=== PATIENT | female | born 1960 | race Caucasian/White ===

== ENCOUNTER 2016-11-21 20:55 | Emergency (ER) | payer OTHER, MEDICARE ==
--- NOTE | 2016-11-21 22:56 | ED ---
Upper Extremity Pain - HPI Summary HPI Summary: 56F presents with right forearm pain s/o falling today. She tripped over a box fan and cut herself by striking her forearm. She has history of fibromyalgia and takes pain medication for that. She denies any numbness or tingling. She is right handed. She previously broke the left arm. - History of Current Complaint Chief Complaint: EDExtremityUpper Stated Complaint: RIGHT WRIST PAIN Time Seen by Provider: 11/21/16 22:26 - Allergies/Home Medications Allergies/Adverse Reactions: Allergies Allergy/AdvReac Type Severity Reaction Status Date / Time Flu Virus Vaccine Allergy Severe Hives Verified 10/05/15 22:22 Sulfa Antibiotics Allergy Severe Airway Verified 10/05/15 22:22 Obstruction Carbamazepine [From Tegretol] Allergy Mild Rash Verified 10/05/15 22:22 Cephalexin [From Keflex] Allergy Mild Rash Verified 10/05/15 22:22 Chicken Protein Allergy Mild Itching Verified 10/05/15 22:22 Ciprofloxacin [From Cipro] Allergy Mild Rash Verified 10/05/15 22:22 Doxycycline Allergy Mild Rash Verified 10/05/15 22:22 Soy Allergy Allergy Mild Itching Verified 10/05/15 22:22 Diazepam [From Valium] Allergy Unknown See Comment Verified 10/05/15 22:22 Meperidine [From Demerol HCl] Allergy Unknown See Comment Verified 10/05/15 22: 22 Eggs or Egg-derived Products Allergy Hives Verified 10/05/15 22:22 Amoxicillin [From Augmentin] AdvReac Severe Numbness Verified 10/05/15 22:22 Clarithromycin [From Biaxin] AdvReac Severe Nausea And Verified 10/05/15 22:22 Vomiting Clavulanic Acid AdvReac Severe Numbness Verified 10/05/15 22:22 [From Augmentin] Iodinated Contrast Media AdvReac Severe See Comment Verified 10/05/15 22:22 [CONTRAST DYE] Shellfish Allergy AdvReac Severe See Comment Verified 10/05/15 22:22 PMH/Surg Hx/FS Hx/Imm Hx Endocrine/Hematology History: Reports: Hx Diabetes - DM 2, Hx Thyroid Disease - hashimotos, Hx Unexplained Bleeding - following hyterectomy Cardiovascular History: Reports: Hx Aneurysm - brain, Hx Hypertension - denies, Hx Syncope, Other Cardiovascular Problems/Disorders - HOSHIMOTOS, PIGETS DISEASE Respiratory History: Reports: Hx Asthma, Hx Chronic Obstructive Pulmonary Disease (COPD) - HOME O2 @ 2L [place] PRN GI History: Reports: Other GI Disorders - MULTIPLE ABD SURGERIES, IBS, pain, Musculoskeletal History: Reports: Hx Fibromyalgia, Other Musculoskeletal History - PAGETs Sensory History: Reports: Hx Contacts or Glasses Opthamlomology History: Reports: Hx Contacts or Glasses Neurological History: Reports: Hx Seizures, Other Neuro Impairments/Disorders - FIBROMYALIGA, VERTIGO/SYNCOPE, "brain lesions with aneurism" Psychiatric History: Reports: Hx Anxiety, Hx Depression - Surgical History Surgery Procedure, Year, and Place: cholecystectomy, appendectomy, laproscopies , hysterectomy, tonsillectomy, carpal tunnel surgery, benign breast cyst removed. Hx Anesthesia Reactions: No - Immunization History Date of Tetanus Vaccine: Unk Date of Influenza Vaccine: Allergic Infectious Disease History: Denies: Traveled Outside the [place] in Last 30 Days - Family History Known Family History: Positive: None Negative: Cardiac Disease - Social History Alcohol Use: Occasionally Hx Substance Use: No Substance Use Type: Reports: None Hx Tobacco Use: Yes Smoking Status (MU): Former Smoker Review of Systems Negative: Fever Negative: Chest Pain Negative: Shortness Of Breath Positive: Myalgia - right forearm pain All Other Systems Reviewed And Are Negative: Yes Physical Exam Triage Information Reviewed: Yes Vital Signs On Initial Exam: Initial Vitals Temp Pulse Resp BP Pulse Ox 97.8 F 101 18 118/68 99 11/21/16 21:03 11/21/16 21:03 11/21/16 21:03 11/21/16 21:03 11/21/16 21:03 Vital Signs Reviewed: Yes Appearance: Positive: Well-Appearing Skin: Positive: Warm, Dry, Other - tenderness midforearm right hand Head/Face: Positive: Normal Head/Face Inspection Eyes: Positive: Normal, EOMI, [place], Conjunctiva Clear ENT: Positive: Normal ENT inspection, Pharynx normal, TMs normal Respiratory/Lung Sounds: Positive: Clear to Auscultation, Breath Sounds Present Cardiovascular: Positive: Normal, RRR Musculoskeletal: Positive: Limited @ - right wrist, Other - tender midforearm, good pulses, capillary refill<2 secs Diagnostics - Vital Signs Vital Signs Temp Pulse Resp BP Pulse Ox 11/21/16 21:03 97.8 F 101 18 118/68 99 - Laboratory Lab Statement: Any lab studies that have been ordered have been reviewed, and results considered in the medical decision making process. - Radiology wrist, forearm Xray Interpretation: No Acute Changes Radiology Interpretation Completed By: ED Physician Course/Dx - Course Course Of Treatment: 56F presents with right forearm pain s/o falling today. She tripped over a box fan and cut herself by striking her forearm. She has history of fibromyalgia and takes pain medication for that. She denies any numbness or tingling. She is right handed. She previously broke the left arm. on exam tenderness midforearm. xray normal. will treat with RICE. patient understands and agrees with plan. - Diagnoses Differential Diagnosis/HQI/PQRI: Positive: Contusion, Fracture (Closed), Sprain Provider Diagnoses: Right forearm injury Discharge - Discharge Plan Condition: Good Disposition: HOME Patient Education Materials: Contusion in Adults (ED) Referrals: Baudilio Butler DO [Primary Care Provider] - Additional Instructions: Take Tylenol or ibuprofen every 6 hours as needed for pain Apply ice, rest, elevate Follow up with primary care physician within 5 days Return to ED if develop any new or worsening symptoms
[2016-11-21 23:08] VITALS: BP 108/63
--- NOTE | 2016-11-22 07:39 | RAD ---
HISTORY: Right forearm injury, right wrist injury COMPARISONS: None VIEWS: 6, Frontal, lateral, and oblique views of the right wrist with frontal and lateral views of the right forearm FINDINGS: BONE DENSITY: Normal. BONES: There is remote posttraumatic deformity to the proximal phalanx of the fifth digit. There is no acute displaced fracture. 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 There is osteoarthritis of the first CMC joint. ALIGNMENT: There is no dislocation. SOFT TISSUES: Unremarkable. OTHER FINDINGS: None. IMPRESSION: NO ACUTE OSSEOUS INJURY OF THE RIGHT WRIST AND FOREARM. IF SYMPTOMS PERSIST, RECOMMEND REPEAT IMAGING.
== END 2016-11-21 23:07 | disposition home or self-care (01) ==
LOC: ED 20:55
DX: S59.911A Unspecified injury of right forearm, initial encounter (principal); W01.0XXA Fall on same level from slipping, tripping and stumbling without subsequent striking against object, initial encounter; Y93.9 Activity, unspecified; Y92.9 Unspecified place or not applicable; E11.9 Type 2 diabetes mellitus without complications; E06.3 Autoimmune thyroiditis; J44.9 Chronic obstructive pulmonary disease, unspecified; F41.9 Anxiety disorder, unspecified; F32.9 Major depressive disorder, single episode, unspecified; Z90.49 Acquired absence of other specified parts of digestive tract; Z90.710 Acquired absence of both cervix and uterus; Z88.2 Allergy status to sulfonamides; Z88.7 Allergy status to serum and vaccine; Z88.8 Allergy status to other drugs, medicaments and biological substances; Z88.1 Allergy status to other antibiotic agents; Z91.041 Radiographic dye allergy status; Z88.5 Allergy status to narcotic agent; Z91.013 Allergy to seafood; R56.9 Unspecified convulsions; Z87.891 Personal history of nicotine dependence
CPT/HCPCS: 99282

== ENCOUNTER 2017-05-26 12:13 | Emergency (ER) | payer MEDICARE, OTHER ==
[2017-05-26] MEDS ORDERED: HYDROcodone/ACETAMIN 5-325 MG* 1 TAB PO ONE ×2 (12:43→14:22)
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
--- NOTE | 2017-05-26 13:48 | RAD ---
INDICATION: Left third digit injury COMPARISON: None TECHNIQUE: AP, lateral, and oblique views were obtained. FINDINGS: There is no acute fracture. There is minor interphalangeal osteoarthritis. The soft tissues are normal. IMPRESSION: NO ACUTE FRACTURE INDICATION: Left fourth digit injury COMPARISON: None TECHNIQUE: AP, lateral, and oblique views were obtained FINDINGS: There is a comminuted intra-articular fracture involving the base of the proximal phalanx of the fourth digit. There is volar subluxation/dislocation of the middle phalanx relative to the proximal phalanx. There is underlying interphalangeal osteoarthritis. There is soft tissue swelling. IMPRESSION: INTRA-ARTICULAR FRACTURE AT THE PIP OF THE FOURTH DIGIT WITH SUBLUXATION/DISLOCATION . INDICATION: Left forearm injury COMPARISON: None TECHNIQUE: 2 views were obtained FINDINGS: There is no acute forearm fracture. The soft tissues are normal IMPRESSION: NEGATIVE LEFT FOREARM. INDICATION: Left elbow injury COMPARISON: None TECHNIQUE: Multiple views were obtained FINDINGS: There is no definitive fracture although there is mild fat pad displacement raises the possibility of an occult injury. There are moderate arthritic changes most conspicuous about the coronoid process. IMPRESSION: SMALL JOINT EFFUSION WITHOUT DEFINITIVE FRACTURE. SUGGEST FOLLOW-UP CLINICALLY INDICATED. UNDERLYING OSTEOARTHRITIS.
[2017-05-26 14:54] VITALS: BP 122/74
== END 2017-05-26 14:53 | disposition home or self-care (01) ==
LOC: ED 12:13
DX: S42.402A Unspecified fracture of lower end of left humerus, initial encounter for closed fracture (principal); M79.642 Pain in left hand; Z87.891 Personal history of nicotine dependence; V49.9XXA Car occupant (driver) (passenger) injured in unspecified traffic accident, initial encounter; Y92.9 Unspecified place or not applicable; E11.9 Type 2 diabetes mellitus without complications; Z86.79 Personal history of other diseases of the circulatory system
CPT/HCPCS: 73140; 99282

== ENCOUNTER 2017-05-31 05:56 | Day surgery (SDC) | payer OTHER ==
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
[~2017-05-31 05:56] MED LIST: Buffered Lidocaine 0.9% SYRIN* 5 ML/SYR SYRINGE INTRADERM ONE
[2017-05-31] MEDS ORDERED: Clindamycin 900 MG IVPREMIX(* 900 MG/50 ML SDV IV ONE (06:06)
[2017-05-31] MEDS ORDERED: Buffered Lidocaine 0.9% SYRIN* 5 ML/SYR SYRINGE ONE (06:06)
[2017-05-31] MEDS ORDERED: Insulin LISPRO* 1 UNITS UNIT SUBCUT ONE (06:46)
[2017-05-31] MEDS ORDERED: Lidocaine 1% INJ* 10 MG/ML 30 ML SDV ONE (07:17)
[2017-05-31] MEDS ORDERED: Midazolam* 1 MG/ML 2 ML VIAL (2 MG) ONE ×3 (07:39→08:13)
[2017-05-31] MEDS ORDERED: fentaNYL* 50 MCG/ML 2 ML VIAL (100 MCG VIAL) ONE (07:39)
[2017-05-31] MEDS ORDERED: Naloxone* 0.4 MG/ML 1 ML VIAL IV PRN (08:22)
[2017-05-31 10:21] VITALS: BP 118/70
--- NOTE | 2017-05-31 16:19 | RAD ---
INDICATION: Percutaneous pinning left fourth digit COMPARISON: May 30, 2017 FINDINGS: 2 minutes and 6 seconds of fluoroscopy were provided for the orthopedics department. Fluoroscopic spot imaging of the left hand were obtained for operative control. CPT II Codes: 6045F (fluoro time doc)
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
== END 2017-05-31 10:22 | disposition home or self-care (01) ==
LOC: OR 05:56 → OREAST 05:56 → OR 10:22
PROVIDERS: ATTEND Orthopaedic Surgery
DX: S62.625A Displaced fracture of middle phalanx of left ring finger, initial encounter for closed fracture (principal); E11.9 Type 2 diabetes mellitus without complications; Z79.84 Long term (current) use of oral hypoglycemic drugs; Z79.4 Long term (current) use of insulin; Z87.891 Personal history of nicotine dependence; J44.9 Chronic obstructive pulmonary disease, unspecified; F41.8 Other specified anxiety disorders; M79.7 Fibromyalgia; V49.9XXA Car occupant (driver) (passenger) injured in unspecified traffic accident, initial encounter; Y92.9 Unspecified place or not applicable; M54.9 Dorsalgia, unspecified; M54.2 Cervicalgia
CPT/HCPCS: 76000; C1776; J2250; J3010

== ENCOUNTER 2017-06-10 05:41 | Emergency (ER) | payer OTHER ==
[2017-06-10] MEDS ORDERED: Oseltamivir CAP* 75 MG CAP PO ONE (06:58)
[2017-06-10 07:28] VITALS: BP 132/81
--- NOTE | 2017-06-10 19:15 | ED ---
Kd Toledo Nilda, scribed for Ijeoma Grajeda MD on 06/10/17 at 0717 . Influenza-Like Illness - HPI Summary HPI Summary: This patient is a 57 year old F presenting [facility] accompanied by with a chief complaint of constant flu-like symptoms for the past few days. Recent sick contact with who was found to be positive for flu in ED. The patient rates the pain 7/10 in severity. Patient reports chills, ANNE, and body aches. Symptoms aggravated by movement and alleviated by rest. - History of Current Complaint Chief Complaint: EDFluSymptoms Time Seen by Provider: 06/10/17 05:58 Hx Obtained From: Patient Onset/Duration: Sudden Onset, Lasting Days, Still Present Severity: Severe Associated Signs & Symptoms: Myalgia, Headache Related Hx: Possible Flu/Infectious Exposure - diagnosed with flu tonight - Allergy/Home Medications Allergies/Adverse Reactions: Allergies Allergy/AdvReac Type Severity Reaction Status Date / Time Adhesive Tape Allergy Unknown Verified 05/31/17 06:18 Reaction Details amoxicillin [From Augmentin] Allergy NUMBNESS Verified 05/31/17 06:18 LEFT SIDE OF BODY carbamazepine [From Tegretol] Allergy Rash Verified 05/31/17 06:18 cephalexin [From Keflex] Allergy Rash Verified 05/31/17 06:18 ciprofloxacin [From Cipro] Allergy Rash Verified 05/31/17 06:18 clarithromycin [From Biaxin] Allergy NAUSEA,VOMITING Verified 05/31/17 06:18 AND DIARRHEA clavulanic acid Allergy NUMBNESS Verified 05/31/17 06:18 [From Augmentin] LEFT SIDE OF BODY diazepam [From Valium] Allergy Unknown Verified 05/31/17 06:18 Reaction Details doxycycline Allergy Rash Verified 05/31/17 06:18 egg Allergy Hives Verified 05/31/17 06:18 Iodinated Contrast- Oral and Allergy CHEST PAIN Verified 05/31/17 06:18 IV Dye meperidine [From Demerol] Allergy Unknown Verified 05/31/17 06:18 Reaction Details shellfish derived Allergy CHEST PAIN Verified 05/31/17 06:18 soy Allergy Itching Verified 05/31/17 06:18 CHICKEN Allergy Itching Uncoded 05/31/17 06:18 FLU VACCINE Allergy Hives Uncoded 05/31/17 06:18 SULFA ANTIBIOTICS Allergy Airway Uncoded 05/31/17 06:18 Obstruction PMH/Surg Hx/FS Hx/Imm Hx Endocrine/Hematology History: Reports: Hx Diabetes - TYPE II- INSULIN, Hx Thyroid Disease - hashimotos, Hx Anemia, Hx Unexplained Bleeding - following hyterectomy Cardiovascular History: Reports: Hx Aneurysm - brain, Hx Hypertension - denies, Hx Syncope, Other Cardiovascular Problems/Disorders - HOSHIMOTOS, PIGETS DISEASE Denies: Hx Pacemaker/ICD Respiratory History: Reports: Hx Asthma - PRN INHALER, Hx Chronic Obstructive Pulmonary Disease (COPD) - HOME O2 @ 2L NC PRN, Hx Sleep Apnea, Other Respiratory Problems/Disorders - PRN- OXYGEN 2L VIA NASAL CANNULA PER PATIENT GI History: Reports: Hx Gastroesophageal Reflux Disease - ON MEDICATION FOR, Hx Irritable Bowel, Other GI Disorders - MULTIPLE ABD SURGERIES, Musculoskeletal History: Reports: Hx Arthritis - "ALL OVER"- INCLUDING NECK AND HIPS, SPINE PER PATIENT, Hx Fibromyalgia, Other Musculoskeletal History - PAGET' s Sensory History: Reports: Hx Contacts or Glasses - GLASSES Denies: Hx Hearing Aid Opthamlomology History: Reports: Hx Contacts or Glasses - GLASSES Neurological History: Reports: Hx Seizures - HX OF-LAST 3-4 YRS AGO, Other Neuro Impairments/Disorders - FIBROMYALIGA, VERTIGO/[id number] AGO, "brain lesions with aneurism" Psychiatric History: Reports: Hx Anxiety - ON MEDICATION FOR, Hx Depression - ON MEDICATION FOR - Surgical History Surgery Procedure, Year, and Place: cholecystectomy, appendectomy, SEVERAL LAPAROSCOPIC PROCEDURES, hysterectomy, tonsillectomy, RIGHT carpal tunnel surgery, benign breast cyst removed -[facility]. TENDON RELEASE ON THE RIGHT HAND Hx Anesthesia Reactions: No - Immunization History Date of Tetanus Vaccine: Unk Date of Influenza Vaccine: Allergic Infectious Disease History: No Infectious Disease History: Denies: Traveled Outside the [place] in Last 30 Days - Family History Known Family History: Negative: Cardiac Disease - Social History Alcohol Use: Occasionally Hx Substance Use: No Substance Use Type: Reports: None Hx Tobacco Use: Yes Smoking Status (MU): Former Smoker Amount Used/How Often: 1/2 PPD X 1 YEAR Have You Smoked in the Last Year: No Review of Systems Positive: Chills Positive: Myalgia Positive: Headache All Other Systems Reviewed And Are Negative: Yes Physical Exam - Summary Physical Exam Summary: VITAL SIGNS: Reviewed. GENERAL: Patient is a well-developed and nourished female who is lying comfortable in the stretcher. Patient is not in any acute respiratory distress. HEAD AND FACE: No signs of trauma. No ecchymosis, hematomas or skull depressions. No sinus tenderness. EYES: PERRLA, EOMI x 2, No injected conjunctiva, no nystagmus. EARS: Hearing grossly intact. Ear canals and tympanic membranes are within normal limits. MOUTH: Oropharynx within normal limits. NECK: Supple, trachea is midline, no adenopathy, no JVD, no carotid bruit, no c- spine tenderness, neck with full ROM. CHEST: Symmetric, no tenderness at palpation LUNGS: Clear to auscultation bilaterally. No wheezing or crackles. CVS: Regular rate and rhythm, S1 and S2 present, no murmurs or gallops appreciated. ABDOMEN: Soft, non-tender. No signs of distention. No rebound no guarding, and no masses palpated. Bowel sounds are normal. EXTREMITIES: FROM in all major joints, no edema, no cyanosis or clubbing. NEURO: Alert and oriented x 3. No acute neurological deficits. Speech is normal and follows commands. SKIN: Dry and warm Triage Information Reviewed: Yes Vital Signs On Initial Exam: Initial Vitals Temp Pulse Resp BP Pulse Ox 98.1 F 102 18 122/87 100 06/10/17 05:44 06/10/17 05:44 06/10/17 05:44 06/10/17 05:44 06/10/17 05:44 Vital Signs Reviewed: Yes Diagnostics - Vital Signs Vital Signs Temp Pulse Resp BP Pulse Ox 06/10/17 05:44 98.1 F 102 18 122/87 100 - Laboratory Lab Results: Lab Results 06/10/17 Range/Units 06:34 Influenza A (Rapid) Negative (Negative) Influenza B (Rapid) Positive A (Negative) Lab Statement: Any lab studies that have been ordered have been reviewed, and results considered in the medical decision making process. Flu Symptom Course/Dx - Course Assessment/Plan: This patient is a 57 year old F presenting to [facility] accompanied by with a chief complaint of constant flu-like symptoms for the past few days. Recent sick contact with who was found to be positive for flu in ED. The patient rates the pain 7/10 in severity. Patient reports chills, ANNE, and body aches. Symptoms aggravated by movement and alleviated by rest. Exam unremarkable. Flu came back positive. Pt D/C with Dx of Flu. - Diagnoses Provider Diagnoses: Influenza B Discharge - Discharge Plan Condition: Stable Disposition: HOME Prescriptions: Ibuprofen TAB* [Motrin TAB* 800 MG] 800 mg PO Q6H PRN #30 tab PRN Reason: Fever/Pain Oseltamivir CAP* [Tamiflu CAP*] 75 mg PO BID #10 cap Patient Education Materials: Influenza (ED) Referrals: Baudilio Butler DO [Primary Care Provider] - 2 Days Additional Instructions: RETURN TO THE EMERGENCY DEPARTMENT FOR CHANGING OR WORSENING SYMPTOMS. The documentation as recorded by the Kd root Nilda accurately reflects the service I personally performed and the decisions made by , Ijeoma Grajeda MD.
== END 2017-06-10 07:27 | disposition home or self-care (01) ==
LOC: ED 05:41
DX: J10.1 Influenza due to other identified influenza virus with other respiratory manifestations (principal); R51 Headache; Z87.891 Personal history of nicotine dependence
CPT/HCPCS: 87502; 99282; A9270-GY

== ENCOUNTER 2017-11-04 17:34 | Emergency (ER) | payer OTHER, MEDICARE ==
--- NOTE | 2017-11-04 19:43 | ED ---
GI/ HPI - HPI Summary HPI Summary: This is ivett Rudolph documenting for attending Simon Razo MD. This patient is a 57 year old F presenting [facility] accompanied by a male with a chief complaint of difficulty passing urine and sharp urethral pain since 4 hours ago. The patient rates the pain 9/10 in severity. Patient reports diarrhea , abd pain, stomach firmness, and intermittent urethral stabbing pain. Patient denies dysuria. Pt last urinated at 2 pm after sleeping around 14 hours. Since then, pt cannot release urine despite feeling the urge to. Pt regularly uses a catheter, twice weekly. Pt received Botox in the bladder 2 months ago to treat her interstitial cystitis. PMHX bladder stones, interstitial cystitis, catheter installations as needed, fibromyalgia, past UTIs, hypothyroidism, endometriosis , Sjogrens and DM. RX medical marijuana. Pt took some of the medical marijuana before coming to the ED. Pt has been icing her groin area. - History of Current Complaint Chief Complaint: EDUrogenitalProblems Time Seen by Provider: 11/04/17 19:25 Stated Complaint: ABD PAIN/NAUSEA Hx Obtained From: Patient Onset/Duration: Started Hours Ago - 4 Timing: Constant Severity: Moderate Current Severity: Moderate Pain Intensity: 9 Additional Location for Females: Other - urethra Pain Characteristics: Sharp Associated Signs and Symptoms: Positive: Diarrhea, Abdominal Pain. Negative: Hematemesis - Additional Pertinent History Primary Care Physician: [id number] - Allergy/Home Medications Allergies/Adverse Reactions: Allergies Allergy/AdvReac Type Severity Reaction Status Date / Time Adhesive Tape Allergy Unknown Verified 11/04/17 17:45 Reaction Details amoxicillin [From Augmentin] Allergy NUMBNESS Verified 11/04/17 17:45 LEFT SIDE OF BODY carbamazepine [From Tegretol] Allergy Rash Verified 11/04/17 17:45 cephalexin [From Keflex] Allergy Rash Verified 11/04/17 17:45 ciprofloxacin [From Cipro] Allergy Rash Verified 11/04/17 17:45 clarithromycin [From Biaxin] Allergy NAUSEA,VOMITING Verified 11/04/17 17:45 AND DIARRHEA clavulanic acid Allergy NUMBNESS Verified 11/04/17 17:45 [From Augmentin] LEFT SIDE OF BODY diazepam [From Valium] Allergy Unknown Verified 11/04/17 17:45 Reaction Details doxycycline Allergy Rash Verified 11/04/17 17:45 egg Allergy Hives Verified 11/04/17 17:45 Iodinated Contrast- Oral and Allergy CHEST PAIN Verified 11/04/17 17:45 IV Dye meperidine [From Demerol] Allergy Unknown Verified 11/04/17 17:45 Reaction Details shellfish derived Allergy CHEST PAIN Verified 11/04/17 17:45 soy Allergy Itching Verified 11/04/17 17:45 CHICKEN Allergy Itching Uncoded 11/04/17 17:45 FLU VACCINE Allergy Hives Uncoded 11/04/17 17:45 SULFA ANTIBIOTICS Allergy Airway Uncoded 11/04/17 17:45 Obstruction PMH/Surg Hx/FS Hx/Imm Hx Endocrine/Hematology History: Reports: Hx Diabetes - TYPE II- INSULIN, Hx Thyroid Disease - hashimotos, Hx Anemia, Hx Unexplained Bleeding - following hyterectomy Cardiovascular History: Reports: Hx Aneurysm - brain, Hx Hypertension - denies, Hx Syncope, Other Cardiovascular Problems/Disorders - HOSHIMOTOS, PIGETS DISEASE Denies: Hx Pacemaker/ICD Respiratory History: Reports: Hx Asthma - PRN INHALER, Hx Chronic Obstructive Pulmonary Disease (COPD) - HOME O2 @ 2L NC PRN, Hx Sleep Apnea, Other Respiratory Problems/Disorders - PRN- OXYGEN 2L VIA NASAL CANNULA PER PATIENT GI History: Reports: Hx Gastroesophageal Reflux Disease - ON MEDICATION FOR, Hx Irritable Bowel, Other GI Disorders - MULTIPLE ABD SURGERIES, Musculoskeletal History: Reports: Hx Arthritis - "ALL OVER"- INCLUDING NECK AND HIPS, SPINE PER PATIENT, Hx Fibromyalgia, Other Musculoskeletal History - PAGET' s Sensory History: Reports: Hx Contacts or Glasses - GLASSES Denies: Hx Hearing Aid Opthamlomology History: Reports: Hx Contacts or Glasses - GLASSES Neurological History: Reports: Hx Seizures - HX OF-LAST 3-4 YRS AGO, Other Neuro Impairments/Disorders - FIBROMYALIGA, VERTIGO/[id number] AGO, "brain lesions with aneurism" Psychiatric History: Reports: Hx Anxiety - ON MEDICATION FOR, Hx Depression - ON MEDICATION FOR - Surgical History Surgery Procedure, Year, and Place: cholecystectomy, appendectomy, SEVERAL LAPAROSCOPIC PROCEDURES, hysterectomy, tonsillectomy, RIGHT carpal tunnel surgery, benign [place] TENDON RELEASE ON THE RIGHT HAND Hx Anesthesia Reactions: No - Immunization History Date of Tetanus Vaccine: Unk Date of Influenza Vaccine: Allergic Infectious Disease History: No Infectious Disease History: Denies: Traveled Outside the [place] in Last 30 Days - Family History Known Family History: Negative: Cardiac Disease - Social History Alcohol Use: Occasionally Hx Substance Use: No Substance Use Type: Reports: None Hx Tobacco Use: Yes Smoking Status (MU): Former Smoker Amount Used/How Often: 1/2 PPD X 1 YEAR Have You Smoked in the Last Year: No Review of Systems Positive: Abdominal Pain, Diarrhea, Other - stomach "firm" Positive: pain, other - cannot release urine. Negative: dysuria, hematuria All Other Systems Reviewed And Are Negative: Yes Physical Exam - Summary Physical Exam Summary: Appearance: Well-appearing, Well-nourished, lying in bed comfortably Skin: Warm, dry, no obvious rash Eyes: sclera anicteric, no conjunctival pallor ENT: mucous membranes moist, pharynx appears normal Neck: Supple, nontender Respiratory: Clear to auscultation, no signs of respiratory distress Cardiovascular: Normal S1, S2. No murmurs. Normal distal pulses in tibial and radial bilaterally. Abdomen: Soft, nontender, normal active bowel sounds present Musculoskeletal: Normal, Strength/ROM Intact Neurological: A&Ox3, awake and alert, mentation is normal, speech is fluent and appropriate Psychiatric: affect is normal, does not appear anxious or depressed : Urethra appears normal. No discrete swelling. Triage Information Reviewed: Yes Vital Signs On Initial Exam: Initial Vitals Temp Pulse Resp BP Pulse Ox 97.9 F 103 20 131/81 97 11/04/17 17:37 11/04/17 17:37 11/04/17 17:37 11/04/17 17:37 11/04/17 17:37 Vital Signs Reviewed: Yes Diagnostics - Vital Signs Vital Signs Temp Pulse Resp BP Pulse Ox 11/04/17 17:37 97.9 F 103 20 131/81 97 - Laboratory Result Diagrams: 11/04/17 19:48 11/04/17 19:48 Lab Statement: Any lab studies that have been ordered have been reviewed, and results considered in the medical decision making process. Discharge - Sign-Out/Discharge Documenting (check all that apply): Sign-Out Patient Signing out patient TO: Ijeoma Grajeda - Discharge Plan Referrals: Baudilio Butler DO [Primary Care Provider] -
[2017-11-04 19:54] LABS: ABS Basophils 0 10^3/ul (0-0.2); ABS Eosinophils 0 10^3/ul (0-0.6); ABS Lymphocytes 1.4 10^3/ul (1.0-4.8); ABS Monocytes 0.4 10^3/ul (0-0.8); ABS Neutrophils 3.5 10^3/ul (1.5-7.7); ABS Nucleated RBC 0 10^3/ul; Eosinophil % 0.1 % (0-6); Hematocrit 40 % (35-47); Hemoglobin 13.2 g/dl (12.0-16.0); Lymphocyte % 26.1 % (25-47); Mean Corpuscular HGB Conc 33 g/dl (31-36); Mean Corpuscular Hemoglobin 27 pg (27-31); Mean Corpuscular Volume 82 fL (80-97); Mean Platelet Volume 7.8 um3 (7.4-10.4); Nucleated Red Blood Cells % 0.1; Platelet Count 160 10^3/ul (150-450); Red Blood Count 4.83 10^6/ul (4.00-5.40); Red Cell Distribution Width 14 % (10.5-15); White Blood Count 5.3 10^3/ul (3.5-10.8)
[2017-11-04 20:10] LABS: EGFR Non-African American 72.9 (>60)
[2017-11-04] MEDS ORDERED: Morphine VIAL* 4 MG/ML VIAL (1 ml vial) IV ONE (21:00)
[2017-11-04 21:08] LABS: Urine Appearance Clear; Urine Blood Negative (Negative); Urine Color Yellow; Urine Ketones Negative (Negative); Urine Protein Negative (Negative); Urine Specific Gravity 1.005 (1.010-1.030); Urine Urobilinogen Negative (Negative)
[2017-11-04] MEDS ORDERED: Morphine INJ* 2 MG/ML 1 ML SYRINGE (TWO MG - NEW SYRINGE VERSION) ONE (21:28)
[2017-11-04] MEDS ORDERED: Insulin REGULAR(*) 1 UNITS UNIT IV PUSH ONE (21:44)
--- NOTE | 2017-11-04 22:44 | ED ---
Progress - Progress Note Progress Note: This patient was signed out from Dr. Razo to Dr. Grajeda, awaiting US Abdomen and further workup. US Abdomen reveals 1. Bilateral ureteral jets identified. No bladder wall thickening. 2. Patient unable to urinate with post void volume of 133 mL. This is scribe Nikko Sanchez documenting for attending Dr. Ijeoma Grajeda MD. CT A/P 1. Several bubbles of air are present in the urinary bladder, likely from recent instrumentation. Infection with gas-forming organism less likely. Correlate with clinical history,. 2. Otherwise, no acute findings,. 3. Nonemergent findings detailed above. Course/Dx - Course Course Of Treatment: Patient is a 57 y/o female with a history interstitial cystitis. She self-catheterizes twice per week. Patient has a Urologist in [place], [place]. [place] [facility] [place] had a straight catheterization. CAT scan showed air in bladder. Patient has relief from Toradol. Patient takes medical marijuana at home. Patient will be prescribed Toradol medication. Patient is agreeable with this. - Diagnoses Provider Diagnoses: Interstitial cystitis Discharge - Sign-Out/Discharge Documenting (check all that apply): Patient Departure - DISCHARGE - Discharge Plan Condition: Stable Disposition: HOME Patient Education Materials: Interstitial Cystitis (ED) Referrals: Baudilio Butler DO [Primary Care Provider] - Additional Instructions: FOLLOW UP WITH YOUR UROLOGIST IN [place], [place]. RETURN TO ED FOR ANY NEW OR WORSENING SYMPTOMS.
[2017-11-04] MEDS ORDERED: Ketorolac INJ* 30 MG/ML 1 ML VIAL IV PUSH ONE (22:48)
[2017-11-04 23:51] VITALS: BP 120/83
--- NOTE | 2017-11-05 08:54 | RAD ---
Indication: Abdominal pain. CT of the abdomen and pelvis was performed without oral or IV contrast administration. Comparison is made with previous exam dated October 20, 2014. Coronal and sagittal reconstructed images were obtained. Lung bases demonstrate some atelectasis in the lung bases. No pleural fluid is identified. The heart is of normal size without evidence of pericardial effusion. The liver is normal in size. It is diffusely decreased in density consistent with hepatic steatosis. The patient is status post cholecystectomy. Pancreas demonstrates no mass or pancreatic duct dilatation. The spleen is mildly enlarged. No adrenal masses are noted. The kidneys demonstrate no hydronephrosis in either kidney. Aorta and inferior vena cava are unremarkable. The colon is filled with stool. No dilated loops of bowel are noted. No retroperitoneal or pelvic lymphadenopathy is noted. Normal appendix is identified. The urinary bladder demonstrates air within the urinary bladder which may be due to recent instrumentation. Clinical correlation is suggested. No hernias are identified. There are degenerative changes of the lumbar spine however no gross lytic lesions are noted. IMPRESSION: Air is noted in the urinary bladder presumably from recent instrumentation. Clinical correlation is suggested. Patient is status post hysterectomy. No abnormal masses or fluid collections are noted. No evidence of obstructive uropathy is noted.
--- NOTE | 2017-11-05 09:13 | RAD ---
Indication: Urethral pain. Unable to urinate. Real-time sonography of the urinary bladder was performed. No bladder wall thickening is noted. Patient was unable to urinate with a post void residual of 133 mL. Bilateral renal jets are noted. IMPRESSION: Bilateral ureteral jets. Patient could not void. No bladder wall thickening is noted. Post void residual of 133 mL.
== END 2017-11-04 23:50 | disposition home or self-care (01) ==
LOC: ED 17:34
DX: N30.10 Interstitial cystitis (chronic) without hematuria (principal); Z87.440 Personal history of urinary (tract) infections; E11.9 Type 2 diabetes mellitus without complications; Z79.4 Long term (current) use of insulin; J44.9 Chronic obstructive pulmonary disease, unspecified; Z99.81 Dependence on supplemental oxygen; K21.9 Gastro-esophageal reflux disease without esophagitis; F41.9 Anxiety disorder, unspecified; F32.9 Major depressive disorder, single episode, unspecified; Z88.1 Allergy status to other antibiotic agents; Z91.041 Radiographic dye allergy status; Z91.012 Allergy to eggs; Z88.5 Allergy status to narcotic agent; Z88.0 Allergy status to penicillin; Z91.013 Allergy to seafood; Z88.2 Allergy status to sulfonamides; Z88.7 Allergy status to serum and vaccine; Z88.8 Allergy status to other drugs, medicaments and biological substances; Z91.048 Other nonmedicinal substance allergy status; Z87.891 Personal history of nicotine dependence
CPT/HCPCS: 36415; 74176; 76857; 80048; 81003; 85025; 96374; 96375; 99284; J1885; J2270

== ENCOUNTER 2018-05-15 03:24 | Emergency (ER) | payer OTHER, MEDICARE ==
[2018-05-15] MEDS ORDERED: Albuterol/Ipratropium NEB.SOL* Albuterol 2.5 MG/Ipratropium 0.5 MG 3 ML INH ONE (03:56)
[2018-05-15] MEDS ORDERED: Albuterol 2.5 MG/3 ML NEB.SOL* (0.083%) INH ONE (03:56)
[2018-05-15] MEDS ORDERED: NS 0.9% 1000 ML** 1,000 ML IV ONE (03:57)
--- NOTE | 2018-05-15 04:00 | ED ---
Shortness of Breath - HPI Summary HPI Summary: This patient is a 57 year old F presenting to [facility] accompanied by her with a chief complaint of SOB since 1 day ago. Pt reports that she went to her PCP 3 days ago and was diagnosed with a sinus infection. The patient rates the pain 7/10 in severity. Symptoms aggravated by nothing. Symptoms alleviated by nothing. Patient reports nasal congestion and cough. Pt has hx DM, asthma, and pneumonia. Patient has been taking Zithromax since 3 days ago. - History of Current Complaint Chief Complaint: EDGeneral Hx Obtained From: Patient Onset/Duration: Gradual Onset, Lasting Days - 1 day, Still Present Timing: Constant Current Severity: Mild Dyspnea At: Rest Aggrevating Factors: Nothing Alleviating Factors: Nothing Associated Signs & Symptoms: Cough (Productive), Nasal Congestion - Allergy/Home Medications Allergies/Adverse Reactions: Allergies Allergy/AdvReac Type Severity Reaction Status Date / Time Adhesive Tape Allergy Unknown Verified 05/15/18 03:27 Reaction Details amoxicillin [From Augmentin] Allergy NUMBNESS Verified 05/15/18 03:27 LEFT SIDE OF BODY carbamazepine [From Tegretol] Allergy Rash Verified 05/15/18 03:27 cephalexin [From Keflex] Allergy Rash Verified 05/15/18 03:27 ciprofloxacin [From Cipro] Allergy Rash Verified 05/15/18 03:27 clarithromycin [From Biaxin] Allergy NAUSEA,VOMITING Verified 05/15/18 03:27 AND DIARRHEA clavulanic acid Allergy NUMBNESS Verified 05/15/18 03:27 [From Augmentin] LEFT SIDE OF BODY diazepam [From Valium] Allergy Unknown Verified 05/15/18 03:27 Reaction Details doxycycline Allergy Rash Verified 05/15/18 03:27 egg Allergy Hives Verified 05/15/18 03:27 Iodinated Contrast- Oral and Allergy CHEST PAIN Verified 05/15/18 03:27 IV Dye meperidine [From Demerol] Allergy Unknown Verified 05/15/18 03:27 Reaction Details shellfish derived Allergy CHEST PAIN Verified 05/15/18 03:27 soy Allergy Itching Verified 05/15/18 03:27 CHICKEN Allergy Itching Uncoded 11/04/17 17:45 FLU VACCINE Allergy Hives Uncoded 11/04/17 17:45 SULFA ANTIBIOTICS Allergy Airway Uncoded 11/04/17 17:45 Obstruction Home Medications: Home Medications Azithromycin 250 mg PO DAILY 05/15/18 [History Confirmed 05/15/18] Baclofen TAB* [Lioresal TAB*] 20 mg .SEE ORDER DAILY 05/15/18 [History Confirmed 05/15/18] Fluconazole 150 MG (NF) [Diflucan 150 mg (NF)] 150 mg PO DAILY 05/15/18 [ History Confirmed 05/15/18] PMH/Surg Hx/FS Hx/Imm Hx Endocrine/Hematology History: Reports: Hx Diabetes - TYPE II- INSULIN, Hx Thyroid Disease - hashimotos, Hx Anemia, Hx Unexplained Bleeding - following hyterectomy Cardiovascular History: Reports: Hx Aneurysm - brain, Hx Hypertension - denies, Hx Syncope, Other Cardiovascular Problems/Disorders - HOSHIMOTOS, PIGETS DISEASE Denies: Hx Pacemaker/ICD Respiratory History: Reports: Hx Asthma - PRN INHALER, Hx Chronic Obstructive Pulmonary Disease (COPD) - HOME O2 @ 2L NC PRN, Hx Sleep Apnea, Other Respiratory Problems/Disorders - PRN- OXYGEN 2L VIA NASAL CANNULA PER PATIENT GI History: Reports: Hx Gastroesophageal Reflux Disease - ON MEDICATION FOR, Hx Irritable Bowel, Other GI Disorders - MULTIPLE ABD SURGERIES, Musculoskeletal History: Reports: Hx Arthritis - "ALL OVER"- INCLUDING NECK AND HIPS, SPINE PER PATIENT, Hx Fibromyalgia, Other Musculoskeletal History - PAGET' s Sensory History: Reports: Hx Contacts or Glasses - GLASSES Denies: Hx Hearing Aid Opthamlomology History: Reports: Hx Contacts or Glasses - GLASSES Neurological History: Reports: Hx Seizures - HX OF-LAST 3-4 YRS AGO, Other Neuro Impairments/Disorders - FIBROMYALIGA, VERTIGO/OPGECED-3-8NNS AGO, "brain lesions with aneurism" Psychiatric History: Reports: Hx Anxiety - ON MEDICATION FOR, Hx Depression - ON MEDICATION FOR - Surgical History Surgery Procedure, Year, and Place: cholecystectomy, appendectomy, SEVERAL LAPAROSCOPIC PROCEDURES, hysterectomy, tonsillectomy, RIGHT carpal tunnel surgery, [place] [place] TEND[place] RELEASE ON THE RIGHT HAND Hx Anesthesia Reactions: No - Immunization History Date of Tetanus Vaccine: Unk Date of Influenza Vaccine: Allergic Infectious Disease History: No Infectious Disease History: Denies: Traveled Outside the [place] in Last 30 Days - Family History Known Family History: Negative: Cardiac Disease - Social History Alcohol Use: Occasionally Hx Substance Use: No Substance Use Type: Reports: Marijuana Substance Use Comment - Amount & Last Used: medical for fibromyalgia Hx Tobacco Use: Yes Smoking Status (MU): Former Smoker Amount Used/How Often: 1/2 PPD X 1 YEAR Have You Smoked in the Last Year: No Review of Systems Negative: Fever ENT: Other - nasal congestion Positive: Shortness Of Breath, Cough Negative: Vomiting Negative: Rash All Other Systems Reviewed And Are Negative: Yes Physical Exam - Summary Physical Exam Summary: VITAL SIGNS: Reviewed. GENERAL: Patient is a well-developed and nourished FEMALE who is lying comfortable in the stretcher. Patient is not in any acute respiratory distress. HEAD AND FACE: No signs of trauma. No ecchymosis, hematomas or skull depressions. No sinus tenderness. EYES: PERRLA, EOMI x 2, No injected conjunctiva, no nystagmus. EARS: Hearing grossly intact. Ear canals and tympanic membranes are within normal limits. MOUTH: Oropharynx within normal limits. NECK: Supple, trachea is midline, no adenopathy, no JVD, no carotid bruit, no c- spine tenderness, neck with full ROM. CHEST: Symmetric, no tenderness at palpation LUNGS: Clear to auscultation bilaterally. No wheezing or crackles. CVS: Regular rate and rhythm, S1 and S2 present, no murmurs or gallops appreciated. ABDOMEN: Soft, non-tender. No signs of distention. No rebound no guarding, and no masses palpated. Bowel sounds are normal. EXTREMITIES: FROM in all major joints, no edema, no cyanosis or clubbing. NEURO: Alert and oriented x 3. No acute neurological deficits. Speech is normal and follows commands. SKIN: Dry and warm Triage Information Reviewed: Yes Vital Signs On Initial Exam: Initial Vitals Temp Pulse Resp BP Pulse Ox 97.6 F 97 20 91/62 96 05/15/18 03:25 05/15/18 03:25 05/15/18 03:25 05/15/18 03:25 05/15/18 03:25 Vital Signs Reviewed: Yes Diagnostics - Vital Signs Vital Signs Temp Pulse Resp BP Pulse Ox 05/15/18 03:41 95 107/58 97 05/15/18 03:25 97.6 F 97 20 91/62 96 - Laboratory Lab Statement: Any lab studies that have been ordered have been reviewed, and results considered in the medical decision making process. - Radiology CXR Radiology Interpretation Completed By: ED Physician - Dr. Elfar, pending official report Summary of Radiographic Findings: no acute process Course/Dx - Course Course Of Treatment: This patient is a 57 year old F with hx DM, asthma, and pneumonia presenting to [facility] accompanied by her with a chief complaint of SOB since 1 day ago. Pt reports that she went to her PCP 3 days ago and was diagnosed with a sinus infection. CXR reveals, per ED physician, no acute process. In the ED course the patient was given IV fluids. Patient refused her nebulizer tx saying it hurts her throat. Patient will be discharged home with follow up from PCP. Dx sinus infection and viral syndrome. The patient is agreeable with this plan. - Diagnoses Provider Diagnoses: Sinus infection, Viral syndrome Discharge - Sign-Out/Discharge Documenting (check all that apply): Patient Departure - discharge home Patient Received Moderate/Deep Sedation with Procedure: No - Discharge Plan Condition: Stable Disposition: HOME Patient Education Materials: Viral Syndrome (ED), Sinusitis (ED) Referrals: Baudilio Butler DO [Primary Care Provider] - Additional Instructions: Follow up with primary care physician in 1-2 days. Return to the emergency department with any new or worsening symptoms. - Attestation Statements Document Initiated by Scribe: Yes Documenting Scribe: Alpa Cooper Provider For Whom Marta is Documenting (Include Credential): Ijeoma Grajeda MD Scribe Attestation: Alpa Toledo, scribed for Ijeoma Grajeda MD on 05/15/18 at 0457. Status of Scribe Document: Ready
[2018-05-15] MEDS ORDERED: Levalbuterol 0.63MG/3ML NEB* UNIT OF USE INH ONE (05:11)
[2018-05-15] MEDS ORDERED: Levalbuterol 1.25MG/0.5ML NEB ONE (05:12)
[2018-05-15] MEDS ORDERED: Levalbuterol 1.25MG/0.5ML NEB INH ONE (05:14)
[2018-05-15 06:04] VITALS: BP 121/72
== END 2018-05-15 06:04 | disposition home or self-care (01) ==
LOC: ED 03:24
DX: J32.9 Chronic sinusitis, unspecified (principal); B34.9 Viral infection, unspecified; E11.9 Type 2 diabetes mellitus without complications; Z79.4 Long term (current) use of insulin; J44.9 Chronic obstructive pulmonary disease, unspecified; Z99.81 Dependence on supplemental oxygen; K21.9 Gastro-esophageal reflux disease without esophagitis; F41.9 Anxiety disorder, unspecified; F32.9 Major depressive disorder, single episode, unspecified; Z88.1 Allergy status to other antibiotic agents; Z91.041 Radiographic dye allergy status; Z91.012 Allergy to eggs; Z88.5 Allergy status to narcotic agent; Z88.0 Allergy status to penicillin; Z91.013 Allergy to seafood; Z88.2 Allergy status to sulfonamides; Z88.7 Allergy status to serum and vaccine; Z88.8 Allergy status to other drugs, medicaments and biological substances; Z91.048 Other nonmedicinal substance allergy status; Z87.891 Personal history of nicotine dependence
CPT/HCPCS: 71045; 96360; 99283; A9270-GY